=== PATIENT | male | born 1955 | race Caucasian/White ===

== ENCOUNTER 2019-06-21 09:02 | Day surgery (SDC) | payer OTHER, BC ==
[~2019-06-21 09:02] MED LIST: Lactated Ringers 1,000 ML IV SCH; Sodium Chloride 0.9% 10 ML Syringe FLUSH PRN
[2019-06-21] MEDS ORDERED: fentaNYL 100 MCG/2 ML SDV ONE (11:48)
[2019-06-21] MEDS ORDERED: Propofol 200 MG/20 ML SDV ONE ×3 (11:48→12:46)
--- NOTE | 2019-06-21 16:14 | OR ---
PREOPERATIVE DIAGNOSIS: History of colon polyps. POSTOPERATIVE DIAGNOSIS: History of colon polyps. PROCEDURE PERFORMED: Colonoscopy. INDICATION: The patient is a 63-year-old male with history of colon polyps in the past, who presents for repeat colonoscopy at this time. PROCEDURE IN DETAIL: This was done in the procedure room. Sedation was given per Anesthesia. He was placed in the left lateral position. First, a rectal exam was done, it was normal. Scope was introduced into the rectum and slowly advanced to the rectum, sigmoid, descending, transverse, and ascending colon until the cecum was reached. Right above the cecum in the proximal ascending colon, there was a large polyp on the underside of the fold. I did attempt multiple times to remove it with a hot loop forceps. I was eventually able to get a small piece off and sent to pathology. However, due to the location underside of the fold, it was not possible to remove it in its entirety. The scope was slowly withdrawn looking at all mucosal surfaces on the way out. No other polyps, lesions, or other mucosal issues noted. FINAL DIAGNOSIS: Ascending colon polyp. PLAN: Pending pathology results. May need a right colectomy depending on those results. BKD: 06/21/2019 13:15:10 MODL: 06/21/2019 14:42:01 /[id number]
== END 2019-06-21 14:10 | disposition home or self-care (01) ==
LOC: VM.SDS 09:02
PROVIDERS: ATTEND Surgery
DX: Z12.11 Encounter for screening for malignant neoplasm of colon (principal); D12.2 Benign neoplasm of ascending colon; Z86.010 Personal history of colon polyps
CPT/HCPCS: 36415; 45384; 85610; 88305; J2704; J3010; J7120; 45385

== ENCOUNTER 2021-06-07 07:08 | Day surgery (SDC) | payer OTHER, MEDICARE, BC ==
[~2021-06-07 07:08] MED LIST changes: -Sodium Chloride 0.9% 10 ML Syringe FLUSH PRN
[2021-06-07] MEDS ORDERED: fentaNYL 100 MCG/2 ML SDV ONE (08:12)
[2021-06-07] MEDS ORDERED: Propofol 200 MG/20 ML SDV ONE ×2 (08:12→09:21)
--- NOTE | 2021-06-12 11:36 | OR ---
REFERRING PROVIDER: Luh Skinner from the [facility] in [place]. PREOPERATIVE DIAGNOSES: 1. History of colon polyps. Last colonoscopy 06/06/2020 at the [facility] revealed 17 polyps including a larger polyp within the ascending colon that was unable to be removed locally when the patient had colonoscopy with Dr. Mercedes. 2. There is positive family history of colon cancer in uncle. POSTOPERATIVE DIAGNOSES: 1. 2 mm polyp at 15 cm, removed using cold forceps. There was a second tiny polyp at around 25 cm that I photographed but was unable to quite reach due to a bend/corkscrew orientation of the sigmoid colon. No worrisome features noted with this. 2. Normal-appearing tattooed area of the right colon at around 90 cm from the anal verge. 3. Normal-appearing distal ileum. 4. Mild sigmoid diverticulosis. PROCEDURE: Colonoscopy with polypectomy x1 using cold forceps. SURGEON: Sky Cobian M.D. ANESTHESIA: Monitored anesthesia care. BOWEL PREP: Good. DESCRIPTION OF PROCEDURE: Juan is a 65-year-old male who was brought to the endoscopy suite after discussing risks and benefits of the procedure. Informed consent was obtained for conscious sedation and colonoscopy with or without biopsy and/or polypectomy. We also discussed possibility of missed lesions. Pre-procedure exam was unremarkable. IV, oxygen, and monitors were placed. The patient was placed in the left lateral decubitus position. Sedation was administered and a digital rectal exam was performed and unremarkable. Colonoscope was passed into the rectum and slowly advanced all the way to the cecum. Cecum was viewed and photographed. Ileocecal valve was intubated and distal ileum was normal in appearance. The colonoscope was slowly withdrawn and the mucosa was closed observed in a direct circumferential manner. The ascending colon was remarkable for previously tattooed area at around 90 cm. This was normal in appearance without any recurrence of any polyps. The transverse colon was unremarkable. Descending colon unremarkable. Sigmoid colon revealed some mild diverticulosis. There were also couple of tiny polyps, one at around 25 cm. Otherwise, unable to reach this given the orientation of the colon at this particular area. There was a second 2 mm polyp at 15 cm, which was removed using cold forceps. Retroflexion was performed. Rectal mucosa unremarkable. Scope was removed. The patient tolerated the procedure well. The patient was monitored until that baseline status. Discharge instructions were reviewed and the patient was discharged in good condition. COMPLICATIONS: None. TOTAL TIME: 26 minutes. ESTIMATED BLOOD LOSS: Less than 1 mL. RECOMMENDATIONS/FOLLOW-UP: We will await results of path report to determine ideal followup interval. We will have the patient resume his warfarin tomorrow night and can resume aspirin Friday morning. I am expecting followup colonoscopy in 2 to 3 years given the numerous polyps removed in 06/2020. I would like to kindly thank Luh Skinner for this referral. DMB: 06/07/2021 11:10:37 MODL: 06/07/2021 16:57:11 /[id number]
== END 2021-06-07 10:50 | disposition home or self-care (01) ==
LOC: VM.SDS 07:08
PROVIDERS: ATTEND Family Medicine
DX: Z12.11 Encounter for screening for malignant neoplasm of colon (principal); K63.5 Polyp of colon; K57.30 Diverticulosis of large intestine without perforation or abscess without bleeding; N40.0 Benign prostatic hyperplasia without lower urinary tract symptoms; G47.30 Sleep apnea, unspecified; E78.2 Mixed hyperlipidemia; F17.210 Nicotine dependence, cigarettes, uncomplicated; I35.0 Nonrheumatic aortic (valve) stenosis; J44.9 Chronic obstructive pulmonary disease, unspecified; G47.33 Obstructive sleep apnea (adult) (pediatric); Z79.899 Other long term (current) drug therapy
CPT/HCPCS: 00811; 36415; 85610; 88305; J2704; J3010; J7120

== ENCOUNTER 2024-09-06 00:40 | Emergency (ER) | payer MEDICARE, BC | END 2024-09-06 01:24 | disposition home or self-care (01) | LOC: VM.ED 00:40 | DX: S01.552A Open bite of oral cavity, initial encounter (principal); K06.8 Other specified disorders of gingiva and edentulous alveolar ridge; J44.9 Chronic obstructive pulmonary disease, unspecified; E78.00 Pure hypercholesterolemia, unspecified; Z87.891 Personal history of nicotine dependence; Z79.01 Long term (current) use of anticoagulants; Z79.899 Other long term (current) drug therapy; X58.XXXA Exposure to other specified factors, initial encounter | CPT/HCPCS: 99283 ==

== ENCOUNTER 2024-10-11 10:24 | Day surgery (SDC) | payer BC, MEDICARE, OTHER ==
[2024-10-11] MEDS ORDERED: Propofol 200 MG/20 ML SDV ONE ×2 (10:32→11:17)
[2024-10-11] MEDS ORDERED: fentaNYL 100 MCG/2 ML SDV ONE (10:32)
[2024-10-11] MEDS: Lactated Ringers 1,000 ML IV SCH (10:51)
[2024-10-11 11:04] LABS: PROTHROMBIN TIME 10.6 SEC (8.9-11.5)
[2024-10-28] MEDS ORDERED: Lactated Ringers 1,000 ML IV SCH (07:00)
== END 2024-10-11 12:44 | disposition home or self-care (01) ==
LOC: VM.SDS 10:24
PROVIDERS: ATTEND Surgery
DX: Z12.11 Encounter for screening for malignant neoplasm of colon (principal); D12.6 Benign neoplasm of colon, unspecified; I10 Essential (primary) hypertension; Z86.0100 Personal history of colon polyps, unspecified; Z79.899 Other long term (current) drug therapy
CPT/HCPCS: 00811; 85610; 88305; J2704; J3010; J7120